=== PATIENT | female | born 1995 | race Caucasian/White ===

== ENCOUNTER 2018-02-28 03:14 | Emergency (ER) | payer OTHER, MEDICAID, SELFPAY ==
[2018-02-28 03:31] VITALS: BP 127/85; PULSE 72; RESP 15; TEMP 36.5; O2SAT 100
--- NOTE | 2018-02-28 04:07 | ED.EXTPRO ---
HPI - Extremity Problem General Chief complaint: Extremity Problem,Nontraumatic Stated complaint: Left shoulder throbbing no injury Time Seen by Provider: 02/28/18 03:42 Source: patient Mode of arrival: ambulatory Limitations: no limitations History of Present Illness HPI Narrative: Patient is a 22-year-old female who presents with left arm pain. She says she lifted mini pizza box and started having pain every time she moves her arm patient has reproducible she has no numbness or weakness. She does have decreased abduction. She took 400 mg of ibuprofen prior to arrival. MD Complaint: extremity pain Review of Systems Review of Systems GENERAL: Denies chills,fever HEENT: Denies throat pain RESPIRATORY: Denies dyspnea, cough, wheezing CARDIOVASCULAR: Denies chest pain, palpitations GASTROINTESTINAL: Denies nausea, vomiting MUSCULOSKELETAL: See HPI SKIN: No rash, no laceration, no pruritus NEUROLOGIC: Denies weakness, dizziness, headache, numbness 8 point review of systems is negative except for those stated above and HPI PFSH Medical History Healthy adult (Acute) Social History Smoking Status: Current every day smoker Comment: Father had an SD at age 45 Exam Initial Vital Signs Initial Vital Signs: Vital Signs Temperature 97.7 F 02/28/18 03:31 Pulse Rate 72 02/28/18 03:31 Respiratory Rate 15 02/28/18 03:31 Blood Pressure 127/85 02/28/18 03:31 Pulse Oximetry 100 02/28/18 03:31 GENERAL: Well-appearing, well-nourished and in no acute distress. HEENT: Head atraumatic,EOMI, pupils reactive CARDIOVASCULAR: Regular rate and rhythm without murmurs, rubs or gallops. RESPIRATORY: Breath sounds equal bilaterally, no wheezes rales or rhonchi. ABDOMEN: Soft, nontender. Normoactive bowel sounds all 4 quadrants. No guarding or rebound. EXTREMITIES: Normal range of motion, no clubbing or edema. Neurovascularly intact Left upper extremity no gross bony deformity no tenderness of the biceps tendon is, decreased abduction good internal external rotation negative Neer's test NEUROLOGICAL: Alert and oriented x4.Normal gait and speech. Cranial nerves II through XII grossly intact. SKIN: Warm, dry, no laceration, no petechiae, no rashes or lesions. Course Orders Ordered: ED Orders 02/28/18 EKG-12 Lead Routine Discontinued Medications Acetaminophen (Tylenol) 975 mg PO NOW ONE Stop: 02/28/18 04:05 Last Admin: 02/28/18 04:14 Dose: 975 mg Cyclobenzaprine HCl (Flexeril 10 Mg Prepack) 1 bottle MISC SEEINSTR ONE Stop: 02/28/18 04:05 Last Admin: 02/28/18 04:15 Dose: 1 bottle Vital Signs - 8 hr 02/28/18 03:31 02/28/18 04:20 Temperature 97.7 F Pulse Rate 72 83 Respiratory Rate 15 16 Blood Pressure 127/85 111/69 Pulse Oximetry 100 100 MDM - Extremity (Nontraumatic) ECG Data Attestation EKG: I personally reviewed and interpreted this ECG as follows: Prior ECG tracings: not available for review Interpretation: Normal sinus rhythm rate 69 no acute ischemia normal intervals MDM Narrative Medical decision making narrative: Pain is reproducible with movement likely musculoskeletal she is given Tylenol. Discharge Plan Departure Patient Disposition: Home Clinical Impression: Left shoulder strain Discharge Date/Time: 02/28/18 04:21 Interventions: ED Discharge Assessment Last Done: 02/28/18 04:20 Instructions: DI for Shoulder Pain Activity Restrictions/Additional Instructions: *You have been diagnosed with a left shoulder sprain *What to do: Light activity is encouraged, increase activity as tolerated *Continue to take medications as directed Flexeril half a tablet every 8 hr if needed for muscle spasm this can cause drowsiness Motrin 600 mg every 6-to 8 hr if needed for pain Tylenol 650 mg every 4-6 hours if needed for pain *Follow up with your primary care provider in 2-3 days *Return to ER if you should have numbness, tingling, weak or any new, worsening or concerning symptoms
[2018-02-28] MEDS: ACETAMINOPHEN 325 MG TABLET 975 MG PO (04:14)
[2018-02-28] MEDS: CYCLOBENZAPRINE 10 MG PREPACK 1 BOTTLE MISC (04:15)
[2018-02-28 04:20] VITALS: BP 111/69; PULSE 83; RESP 16; O2SAT 100
== END 2018-02-28 04:21 | disposition home or self-care (01) ==
PROVIDERS: Emergency Provider Emergency Medicine
DX: S46.912A Strain of unspecified muscle, fascia and tendon at shoulder and upper arm level, left arm, initial encounter (principal); X50.3XXA Overexertion from repetitive movements, initial encounter
CPT/HCPCS: 93005; 93010; 99282; 99283